=== PATIENT | male | born 1990 | race Caucasian/White ===

== ENCOUNTER 2023-03-20 09:04 | Emergency (ER) | payer BC, SELFPAY ==
[2023-03-20 09:17] VITALS: BP 120/85; PULSE 66; RESP 16; TEMP 36.6; O2SAT 99
--- NOTE | 2023-03-20 09:31 | ED.SKABFB ---
HPI - Skin/Abscess/Foreign Bdy General Chief complaint: Eye Problems Stated complaint: EYE INJURY Time Seen by Provider: 03/20/23 09:16 Source: patient and RN notes reviewed Mode of arrival: ambulatory Limitations: no limitations History of Present Illness HPI narrative: Patient presents today complaining of a laceration to his right eyelid. At 4:30 a.m. this morning patient was sleeping and states he lunged in his sleep and struck his eye on his head board or nightstand, injuring his eye. Denies vision changes. Currently rates his pain 3/10. He has tried no [id number] treatment prior to arrival. Related Data Home Medications Medication Instructions Recorded Confirmed brexpiprazole 1 mg tablet (Rexulti) 1 mg PO DAILY 03/20/23 03/20/23 bupropion HCl 300 mg 24 hr tablet, 300 mg PO DAILY 03/20/23 03/20/23 extended release fluoxetine 20 mg capsule 20 mg PO DAILY 03/20/23 03/20/23 hydroxyzine HCl 25 mg tablet 25 mg PO DAILY 03/20/23 03/20/23 Allergies Allergy/AdvReac Type Severity Reaction Status Date / Time No Known Allergies Allergy Unverified 03/20/23 09:13 Review of Systems Review of Systems: CONSTITUTIONAL: Denies body aches, fever, chills, or sweats. EYES: Denies visual changes, redness, or discharge. ENT: Denies rhinorrhea, congestion, sore throat, or otalgia. CARDIOVASCULAR: Denies chest pain, palpitations, or edema. RESPIRATORY: Denies cough or dyspnea. GASTROINTESTINAL: Denies abdominal pain, nausea, vomiting, or diarrhea. GENITOURINARY: Denies dysuria or hematuria. SKIN: Denies rash, itching. + laceration to right eyelid MUSCULOSKELETAL: Denies back pain, joint pain, or myalgia. NEUROLOGIC: Denies headache, numbness, tingling, or weakness. PSYCH: Denies depression or anxiety. [facility] Family History Family History Father Depression Family history of migraine headaches Grandparent Depression Mother Depression Social History Social History Alcohol intake: current Comments At time of signature, I have reviewed and agree with nursing past medical, surgical, social and family history unless otherwise noted. Please see nursing chart for further information. There is no relevant family history pertinent to the presenting complaint Exam Narrative: GENERAL: Well-appearing, well-nourished, and in no acute distress. HEAD: Normocephalic. EYES: EOMI. PERRL. Right eye: Periorbital ecchymosis. Moderate edema of the upper eyelid. T shaped laceration to the mid upper eyelid that extends through the eyelash border. The horizontal portion of the laceration measures approx 4mm. The vertical portion measures approximately 2-3 mm. There is a mild subconjunctival hemorrhage in the lateral portion of the eye. No tenderness to the orbit itself. No nystagmus. ENT: Mucous membranes pink and moist. NECK: Normal AROM. CHEST: No respiratory distress. EXTREMITIES: Normal range of motion. No edema. SKIN: Warm, dry, no rash. Capillary refill normal. Normal skin turgor. NEURO: No focal deficits. Alert and oriented x3. Gait steady. PSYCH: Normal affect. No signs of depression or anxiety. Course Course Emergency Course: 924- Called Dr. Ross's office, plastic surgeon. He is on vacation. 929- Called Dr. Zuniga's office, plastic surgeon. He is in surgery all day. [phone]-Called Dr. Patterson's office, plastic surgeon. Provided information to office staff member. Will fax over note for doctor's review. [phone]- Call back from Dr. Patterson's office. Will see patient at 1530 this afternoon. Level of Care: Express Care Visit Vital Signs Vital signs: Vital Signs Temperature 98 F 03/20/23 09:17 Pulse Rate 66 03/20/23 09:17 Respiratory Rate 16 03/20/23 09:17 Blood Pressure 120/85 03/20/23 09:17 Pulse Oximetry 99 03/20/23 09:17 Temperature 98 F
[2023-03-20] MEDS: TETANUS,DIPHTHERIA,AC PERTUSSIS ADULT (0.5 ML) BOOSTRIX IM (10:18)
== END 2023-03-20 10:32 | disposition home or self-care (01) ==
PROVIDERS: Emergency Provider Nurse Practitioner
DX: S01.111A Laceration without foreign body of right eyelid and periocular area, initial encounter (principal); Z79.899 Other long term (current) drug therapy; Z23 Encounter for immunization; W45.8XXA Other foreign body or object entering through skin, initial encounter
CPT/HCPCS: 90471; 90715; 99212; G0463